=== PATIENT | male | born 1965 | race Caucasian/White ===

== ENCOUNTER → 2016-12-30 | Outpatient (REF) | payer MEDICARE ==
[~2016-12-30] MED LIST: /PANT40TA OR; PAXI20TA OR; TRAM50TA2 PO; TRAZ100T OR; lisinopril/HCTZ PO
[2016-12-30 13:41] LABS: ALBUMIN 3.9 GM/DL (3.2-5.2); ALBUMIN/GLOBULIN RATIO 1.18 (1.00-1.93); ALKALINE PHOSPHATASE 136 U/L (45-117); ALT/SGPT 33 U/L (12-78); ANION GAP 9 MEQ/L (8-16); AST/SGOT 23 U/L (15-37); BILIRUBIN,TOTAL 0.5 MG/DL (0.2-1.0); BLOOD UREA NITROGEN 17 MG/DL (7-18); CALCIUM LEVEL 8.5 MG/DL (8.5-10.1); CARBON DIOXIDE LEVEL 29 MEQ/L (21-32); CHLORIDE LEVEL 104 MEQ/L (98-107); CHOLESTEROL LEVEL 216 MG/DL (<200); CREATININE FOR GFR 1.03 MG/DL (0.70-1.30); FERRITIN 100 NG/ML (26-388); GLOMERULAR FILTRATION RATE > 60.0 (>56); GLUCOSE, FASTING 102 MG/DL (70-105); POTASSIUM SERUM 4.3 MEQ/L (3.5-5.1); SODIUM LEVEL 142 MEQ/L (136-145); TOTAL PROTEIN 7.2 GM/DL (6.4-8.2); TRIGLYCERIDES LEVEL 90 MG/DL (<150)
[2016-12-30 13:58] LABS: MEAN CORPUSCULAR HEMOGLOBIN 31.8 pg (27.0-33.0); MEAN CORPUSCULAR HGB CONC 33.1 g/dl (32.0-36.5); MEAN CORPUSCULAR VOLUME 96.1 fl (80.0-96.0); RED CELL DISTRIBUTION WIDTH 12.9 % (11.5-14.5); WHITE BLOOD COUNT 5.7 K/mm3 (4.0-10.0)
== END ==
LOC: M SFHCADAM 07:51
PROVIDERS: ATTEND Physician Assistant
DX: R74.8 Abnormal levels of other serum enzymes (principal); K21.9 Gastro-esophageal reflux disease without esophagitis; I10 Essential (primary) hypertension; E78.5 Hyperlipidemia, unspecified
CPT/HCPCS: 80053; 80061; 82043; 82728; 85027; 86255; 86705; 86709; 86803; 87340; G0463

== ENCOUNTER → 2017-12-15 | Outpatient (REF) | payer MEDICARE | LOC: M LAB REF 12:21 | DX: J02.9 Acute pharyngitis, unspecified (principal) | CPT/HCPCS: 87081 ==

== ENCOUNTER → 2018-01-25 | Outpatient (REF) | payer MEDICARE ==
[2018-01-25 12:38] LABS: HEMATOCRIT 47.9 % (42.0-52.0); HEMOGLOBIN 16.1 g/dl (14.0-18.0); MEAN CORPUSCULAR HEMOGLOBIN 31.4 pg (27.0-33.0); MEAN CORPUSCULAR HGB CONC 33.6 g/dl (32.0-36.5); MEAN CORPUSCULAR VOLUME 93.6 fl (80.0-96.0); PLATELET COUNT, AUTOMATED 163 10^3/uL (150-450); RED BLOOD COUNT 5.12 10^6/uL (4.30-6.10); RED CELL DISTRIBUTION WIDTH 12.7 % (11.5-14.5); WHITE BLOOD COUNT 7.7 10^3/uL (4.0-10.0)
[2018-01-25 12:48] LABS: ALBUMIN 3.7 GM/DL (3.2-5.2); ALBUMIN/GLOBULIN RATIO 1.03 (1.00-1.93); ALKALINE PHOSPHATASE 139 U/L (45-117); ALT/SGPT 53 U/L (12-78); ANION GAP 5 MEQ/L (8-16); AST/SGOT 43 U/L (7-37); BILIRUBIN,TOTAL 0.9 MG/DL (0.2-1.0); BLOOD UREA NITROGEN 14 MG/DL (7-18); CALCIUM LEVEL 8.6 MG/DL (8.5-10.1); CARBON DIOXIDE LEVEL 31 MEQ/L (21-32); CHLORIDE LEVEL 106 MEQ/L (98-107); CHOLESTEROL LEVEL 206 MG/DL (<200); CREATININE FOR GFR 0.86 MG/DL (0.70-1.30); GLOMERULAR FILTRATION RATE > 60.0 (>56); GLUCOSE, FASTING 89 MG/DL (70-100); HDL CHOLESTEROL 43 MG/DL (>40); LDL CHOLESTEROL 142.8 MG/DL (<100); NON-HDL-C 163 MG/DL; POTASSIUM SERUM 4.3 MEQ/L (3.5-5.1); SODIUM LEVEL 142 MEQ/L (136-145); TOTAL PROTEIN 7.3 GM/DL (6.4-8.2); TRIGLYCERIDES LEVEL 101 MG/DL (<150)
[2018-01-25 13:09] LABS: MALB URINE SIEMENS 19.8 MG/L; MAU/CREAT RATIO 6.6 MCG/MG (0.0-30.0)
== END ==
LOC: M SFHCADAM 07:53
DX: I10 Essential (primary) hypertension (principal); K21.9 Gastro-esophageal reflux disease without esophagitis; E78.4 Other hyperlipidemia
CPT/HCPCS: 80053

== ENCOUNTER → 2019-01-14 | Outpatient (REF) | payer MEDICARE ==
[~2019-01-14] MED LIST changes: -/PANT40TA OR; +PROT1TAB2 OR
[2019-01-14 13:49] LABS: HEMATOCRIT 48.5 % (42.0-52.0); HEMOGLOBIN 16.1 g/dl (13.5-17.5); MEAN CORPUSCULAR HEMOGLOBIN 31.8 pg (27.0-33.0); MEAN CORPUSCULAR HGB CONC 33.2 g/dl (32.0-36.5); MEAN CORPUSCULAR VOLUME 95.8 fl (80.0-96.0); PLATELET COUNT, AUTOMATED 176 10^3/uL (150-450); RED BLOOD COUNT 5.06 10^6/uL (4.30-6.10); WHITE BLOOD COUNT 8.3 10^3/uL (4.0-10.0)
[2019-01-14 13:58] LABS: ALBUMIN 3.8 GM/DL (3.2-5.2); ALT/SGPT 71 U/L (12-78); BILIRUBIN,TOTAL 0.5 MG/DL (0.2-1.0); BLOOD UREA NITROGEN 16 MG/DL (7-18); CALCIUM LEVEL 8.7 MG/DL (8.5-10.1); CARBON DIOXIDE LEVEL 31 MEQ/L (21-32); CHLORIDE LEVEL 105 MEQ/L (98-107); CHOLESTEROL LEVEL 202 MG/DL (<200); CHOLESTEROL RISK RATIO 4.809 (<5); CREATININE FOR GFR 0.96 MG/DL (0.70-1.30); FREE T4 1.01 NG/DL (0.76-1.46); GLOMERULAR FILTRATION RATE > 60.0 (>56); GLUCOSE, FASTING 90 MG/DL (70-100); HDL CHOLESTEROL 42 MG/DL (>40); LDL CHOLESTEROL 134 MG/DL (<100); NON-HDL-C 160 MG/DL; POTASSIUM SERUM 4.2 MEQ/L (3.5-5.1); SODIUM LEVEL 140 MEQ/L (136-145); TOTAL PROTEIN 7.5 GM/DL (6.4-8.2); TRIGLYCERIDES LEVEL 130 MG/DL (<150)
[2019-01-14 14:00] LABS: TOTAL 25(OH) VITAMIN D 9.3 NG/ML (30.0-100.0)
[2019-01-14 14:01] LABS: FOLATE 4.6 NG/ML; VITAMIN B12 LEVEL 450 PG/ML
== END ==
LOC: M SFHCADAM 09:38
PROVIDERS: ATTEND Physician Assistant
DX: Z12.5 Encounter for screening for malignant neoplasm of prostate (principal); I10 Essential (primary) hypertension; E78.49 Other hyperlipidemia; K21.9 Gastro-esophageal reflux disease without esophagitis; G90.511 Complex regional pain syndrome I of right upper limb; E66.01 Morbid (severe) obesity due to excess calories; Z68.41 Body mass index [BMI] 40.0-44.9, adult
CPT/HCPCS: 80053; 80061; 82043; 82306; 82607; 82746; 84439; 84443; 85027; G0103; G0463

== ENCOUNTER → 2019-04-13 | Outpatient (REF) | payer MEDICARE ==
[2019-04-13 13:27] LABS: FREE T4 1.14 NG/DL (0.76-1.46); THYROID STIMULATING HORMONE 3.68 uIU/ML (0.358-3.740)
== END ==
LOC: M SFHCADAM 08:01
PROVIDERS: ATTEND Physician Assistant Medical
DX: R79.89 Other specified abnormal findings of blood chemistry (principal); Z79.899 Other long term (current) drug therapy

== ENCOUNTER → 2020-01-24 | Outpatient (REF) | payer MEDICARE ==
[2020-01-24 12:51] LABS: HEMATOCRIT 47.1 % (42.0-52.0); HEMOGLOBIN 16.1 g/dl (13.5-17.5); MEAN CORPUSCULAR HEMOGLOBIN 33.2 pg (27.0-33.0); MEAN CORPUSCULAR HGB CONC 34.2 g/dl (32.0-36.5); MEAN CORPUSCULAR VOLUME 97.1 fl (80.0-96.0); PLATELET COUNT, AUTOMATED 161 10^3/uL (150-450); RED BLOOD COUNT 4.85 10^6/uL (4.30-6.10); WHITE BLOOD COUNT 6.7 10^3/uL (4.0-10.0)
[2020-01-24 13:29] LABS: ALBUMIN 3.9 GM/DL (3.2-5.2); ALT/SGPT 63 U/L (12-78); BILIRUBIN,TOTAL 0.8 MG/DL (0.2-1.0); BLOOD UREA NITROGEN 17 MG/DL (7-18); CALCIUM LEVEL 9.1 MG/DL (8.5-10.1); CARBON DIOXIDE LEVEL 27 MEQ/L (21-32); CHLORIDE LEVEL 107 MEQ/L (98-107); CHOLESTEROL LEVEL 200 MG/DL (<200); CHOLESTEROL RISK RATIO 5.263 (<5); CREATININE FOR GFR 0.87 MG/DL (0.70-1.30); FREE T4 1.05 NG/DL (0.76-1.46); GLOMERULAR FILTRATION RATE > 60.0 (>56); GLUCOSE, FASTING 90 MG/DL (70-100); HDL CHOLESTEROL 38 MG/DL (>40); LDL CHOLESTEROL 133 MG/DL (<100); NON-HDL-C 162 MG/DL; POTASSIUM SERUM 4.1 MEQ/L (3.5-5.1); SODIUM LEVEL 139 MEQ/L (136-145); TOTAL PROTEIN 7.6 GM/DL (6.4-8.2); TRIGLYCERIDES LEVEL 144 MG/DL (<150)
[2020-01-24 13:42] LABS: MALB URINE SIEMENS 51.9 MG/L; MAU/CREAT RATIO 15.5 MCG/MG (0.0-30.0)
== END ==
LOC: M SFHCADAM 08:28
PROVIDERS: ATTEND Physician Assistant
DX: I10 Essential (primary) hypertension (principal); E78.00 Pure hypercholesterolemia, unspecified; K21.9 Gastro-esophageal reflux disease without esophagitis; Z12.5 Encounter for screening for malignant neoplasm of prostate
CPT/HCPCS: 80053; 80061; 82043; 84439; 84443; 85027; G0103

== ENCOUNTER → 2021-08-16 | Outpatient (CLI) | payer MEDICARE, OTHER ==
[~2021-08-16] MED LIST changes: +AMLO1TAB25 PO; +NAPR-849 PO; +OXYC1TAB23 PO; +PANT40TA29 PO
== END ==
LOC: M LABSMTC 09:16
PROVIDERS: ATTEND Anesthesiology
DX: Z01.812 Encounter for preprocedural laboratory examination (principal); Z20.822 Contact with and (suspected) exposure to COVID-19

== ENCOUNTER 2021-08-19 10:31 | Day surgery (SDC) | payer OTHER ==
[~2021-08-19] VITALS: Ht 182.9 cm; Wt 124.7 kg
[~2021-08-19 10:31] MED LIST changes: +LR 1,000 ML IV ONE; +ceFAZolin SOD 2 GM in IV 1 EA IV ONE
--- OUTSIDE RECORDS SUMMARY | 2021-08-19 10:34 | CCD | Continuity of Care Document ---
Author Author Filemon FLYNN MD Organization Unknown Address [address] , [facility] [address] [place] [address] Phone [phone] Care Team Providers Care Bulb Grader Name Role Phone Mary Carmen Pina P.A.-C. AUTM AUTM Unavailable Problems Active Problems Provider Date Essential hypertension Bar Lloyd, DO Onset: 0 Social History Type Date Description Comments Sex Unknown ETOH Use Occasionally consumes alcohol Tobacco Use Start: Unknown Denies Smoking Recreational Drug Use Denies Drug Use Allergies and adverse reactions Active Allergies Criticality Reaction | Severity Comments Date Codeine Unable to assess criticality 01/05/2020 Tetanus Unable to assess criticality 01/05/2020 Medications Active Medications SIG Qnty Indications Ordering Provide r Date Pantoprazole Sodium 40mg Tablets D R daily -- one tablet in morning 1/2 hour before breakfast Unknown Oxycodone-Acetaminophen 5-325mg Tablets Aníbal Aguilar MD Amlodipine Besylate 10mg Tablets William Pina M.D. Immunizations Description No Information Available Vital Signs Date Vital Result Comment 01/05/2020 1:05pm BP Systolic 161 mmHg BP Diastolic 104 mmHg Height 72 inches 6'0" Weight 282.12 lb BMI (Body Mass Index) 38.3 kg/m2 [place] Body Weight 178 lb Weight 127.972 kg BSA (Body Surface Area) 2.47 m2 Results Description No Information Available Procedures Date Code Description Status 08/16/2021 28325 Office/Outpatient Established Mo d MDM 30-39 Min Completed Medical Devices Description No Information Available Encounters Type Date Location Provider Dx Diagnosis Office Visit 08/16/2021 8:00a [facility] Ty Flynn MD S52.502D Unsp fx the low end left rad, subs for c los fx w routn heal S82.102D Unsp fx upper end of l tibia , subs for clos fx w routn heal Assessments Date Code Description Provider 08/16/2021 S52.502D Unspecified fracture of the lower end of left radius, subsequent encounter for closed fracture with routine healing Ty Flynn MD 08/16/2021 S82.102D Unspecified fracture of upper end of left tibia, subsequent encounter for closed fracture with routine healing Ty Flynn MD Plan of Treatment Future Appointment(s):* 09/02/2021 9:30 am - Ty Flynn MD at [facility] 08/16/2021 - Ty Flynn MD* S52.502D Unspecified fracture of the lower end of left radius, subsequent encounter for closed fracture with routine healing * S82.102D Unspecified fracture of upper end of left tibia, subsequent encounter for closed fracture with routine healing Functional Status Description No Information Available Mental Status Description No Information Available Referrals Description No Information Available
--- OUTSIDE RECORDS SUMMARY | 2021-08-19 10:34 | CCD ---
Author Author [facility] Organization [facility] Address Unknown Phone Unavailable Care Team Providers Care Cafe Server Name Role Phone Anisa Land MD Unavailable Unavailable Anisa Land MD Unavailable Unavailable Anisa Land MD Unavailable Unavailable Anisa Land MD Unavailable Unavailable Anisa Land MD Unavailable Unavailable Anisa Land MD Unavailable Unavailable Anisa Land MD Unavailable Unavailable Anisa Land MD Unavailable Unavailable Anisa Land MD Unavailable Unavailable Anisa Ladn MD Unavailable Unavailable Anisa Land MD Unavailable Unavailable Anisa Land MD Unavailable Unavailable Anisa Land MD Unavailable Unavailable Anisa Land MD Unavailable Unavailable Anisa Land MD Unavailable Unavailable Anisa Land MD Unavailable Unavailable Anisa Land MD Unavailable Unavailable Anisa Land MD Unavailable Unavailable Anisa Land MD Unavailable Unavailable Anisa Land MD Unavailable Unavailable Anisa Land MD Unavailable Unavailable Anisa Land MD Unavailable Unavailable Anisa Land MD Unavailable Unavailable Anisa Land MD Unavailable Unavailable Anisa Land MD Unavailable Unavailable Anisa Land MD Unavailable Unavailable Anisa Land MD Unavailable Unavailable Anisa Land MD Unavailable Unavailable Anisa Land MD Unavailable Unavailable Anisa Land MD Unavailable Unavailable Re-disclosure Warning The records that you are about to access may contain information from federally-assisted alcohol or drug abuse programs. If such information is present, then the following federally mandated warning applies: This information has been disclosed to you from records protected by federal confidentiality rules (42 CFR part 2). The federal rules prohibit you from making any further disclosure of this information unless further disclosure is expressly permitted by the written consent of the person to whom it pertains or as otherwise permitted by 42 CFR part 2. A general authorization for the release of medical or other information is NOT sufficient for this purpose. The Federal rules restrict any use of the information to criminally investigate or prosecute any alcohol or drug abuse patient.The records that you are about to access may contain highly sensitive health information, the redisclosure of which is protected by Article 27-F of the [facility] Public Health law. If you continue you may have access to information: Regarding HIV / AIDS; Provided by facilities licensed or operated by the [facility] Office of Mental Health; or Provided by the [facility] Office for People With Developmental Disabilities. If such information is present, then the following [facility] mandated warning applies: This information has been disclosed to you from confidential records which are protected by state law. State law prohibits you from making any further disclosure of this information without the specific written consent of the person to whom it pertains, or as otherwise permitted by law. Any unauthorized further disclosure in violation of state law may result in a fine or fdc sentence or both. A general authorization for the release of medical or other information is NOT sufficient authorization for further disc losure. Family History Family Member Name Family Member Gender Family Member Status Date o f Status Description Data Source(s) Unknown Unknown Problem [facility] Encounters Encounter Providers Location Date Indications Data Source(s ) Outpatient Attender: Ty Torres/Shannon/Patric/Annette indl 08/16/2021 08:00:00 AM EDT [facility] ([facility] Outpatient [address] [address] 01/24/2021 12:00:00 AM EDT eCW1 ([facility]) Immunizations Vaccine Date Status Description Data Source(s) COVID-19 VACCINE Pfizer 01/30/2021 12:00:00 AM EDT completed [facility] Vaccine Series Complete: YESThis Data wa s Submitted to [facility] Via [facility]. COVID-19 dose #1 given elsewhere Unspecified 01/09/2021 11:0 4:00 AM EST completed eCW1 ([facility]) COVID-19 VACCINE Pfizer 01/09/2021 12:00:00 AM EST completed [facility] Vaccine Series Complete: NOThis Data was Submitted to [facility] Via [employer]. Medications Medication Brand Name Start Date Product Form Dose Route Admi nistrative Instructions Pharmacy Instructions Status Indications Reaction Description Data Source(s) 4 mg 08/15/2021 12:00:00 AM EDT tablet 5 TAKE ONE TABLET BY MOUTH EVERY 6 TO 8 HOURS NEEDED FOR NAUSEA AND VOMITING TAKE ONE TABLET BY MOUTH EVERY 6 TO 8 HOURS NEEDED FOR NAUSEA AND VOMITING SOLD: 08/15/2021 [facility] 5-325 mg 08/15/2021 12:00:00 AM EDT tablet 12 TAKE ONE TABLET BY MOUTH EVERY 6 HOURS NEEDED FOR PAIN MAXIMUM DAILY DOSE = 4 TAKE ONE TABLET BY MOUTH EVERY 6 HOURS NEEDED FOR PAIN MAXIMUM DAILY DOSE = 4 SOLD: 08/15/2021 [facility] Insurance Providers Payer name Policy type / Coverage type Policy ID Covered democrat ID Covered democrat's relationship to reagan Policy Reagan Plan Information [facility] 301/[id number] [facility] [id number] [facility] SELF INSURED [id number] SP [id number] MEDICARE [id number] SP [id number] MEDICARE COMPLETE [id number] SP [id number] ANSI-Medicare Part B [id number] ANSI-Commercial [id number] ANSI-Medicare Part B [id number] ANSI-Commercial [id number] ANSI-Medicare Part B [id number] ANSI-Commercial [id number] [facility]/Medicare Sol Commercial [id number] Self [id number] SELF PAY UNAVAILABLE UNAVAILA BLE BLUE CROSS BLUE SHIELD-CLINIC [id number] MEDICARE [id number] SP [id number] STATE INSURANCE FUND [id number] SP [id number] [facility] 301/801 [id number] [id number] [facility] [id number] [facility] [id number] Problems, Conditions, and Diagnoses No Information Surgeries/Procedures Procedure Description Date Indications Data Source(s) OFFICE OUTPATIENT VISIT 25 MINUTES 08/16/2021 12:00:00 AM EDT [facility] ([facility] ) Results No Information Social History Code Duration Value Status Description Data Source(s ) Smoking 01/24/2021 12:00:00 AM EDT UNK completed eCW1 ([facility]) Vital Signs ID Date Data Source UNK Name Value Range Interpretation Code Description Data Source(s) Body weight 278.2 [lb_av] 278.2 [lb_av] eCW1 ([facility]) Body height [in_i] eCW1 ([facility]) Body mass index (BMI) [Ratio] 38.80 kg/m2 38.80 kg/m2 eCW1 ([facility]) Heart rate 104 /min 104 /min eCW1 ([facility]) Respiratory rate 18 /min 18 /min eCW1 ([facility]) Body temperature 97.1 [degF] 97.1 [degF] eCW1 ( [facility]) Systolic blood pressure 120 mm[Hg] 120 mm[Hg] e CW1 ([facility]) Diastolic blood pressure 82 mm[Hg] 82 mm[Hg] eCW1 ([facility])
[2021-08-19] MEDS ORDERED: ONDA4TAB6 PO (11:29)
[2021-08-19] MEDS ORDERED: BUPIVACAINE/EPIN 0.25% 30 ML VIAL As Ordered ONE (11:46)
[2021-08-19] MEDS ORDERED: propofoL 200 MG/20 ML VIAL As Ordered ONE (11:52)
[2021-08-19] MEDS ORDERED: ONDANSETRON 4MG/2ML VIAL As Ordered ONE (11:53)
[2021-08-19] MEDS ORDERED: ROCURONIUM BROMIDE 50 MG/5 ML VIAL As Ordered ONE (11:53)
[2021-08-19] MEDS ORDERED: LIDOCAINE 2% 100MG/5ML SDV (FOR ANES.) As Ordered ONE (11:53)
[2021-08-19] MEDS ORDERED: dexameTHASONE 4 MG/ML 1ML VIAL (J1100 PER 1MG) As Ordered ONE (11:54)
[2021-08-19] MEDS ORDERED: fentaNYL 100 MCG/2 ML INJECTION (J3010) As Ordered ONE (11:57)
[2021-08-19] MEDS ORDERED: MIDAZOLAM INJ 2MG/2ML VIAL (J2250 PER 1MG) As Ordered ONE (11:57)
[2021-08-19] MEDS ORDERED: HYDROmorphone HCL 2 MG/ML 1ML VIAL As Ordered ONE (12:26)
[2021-08-19] MEDS ORDERED: ACETAMINOPHEN 1000MG 100ML IV BTL (OFIRMEV) (J0131 PER 10MG) As Ordered ONE (12:28)
[2021-08-19] MEDS ORDERED: KETOROLAC 60MG 2ML VIAL As Ordered ONE (14:07)
--- NOTE | 2021-08-19 14:29 | ROOPDOC ---
[facility] Report Of Operation Report of Operation DATE OF PROCEDURE: 08/19/21 PREPROCEDURE DIAGNOSES: Left distal radius fracture and left hemarthrosis knee. POSTPROCEDURE DIAGNOSES: Same. PROCEDURE PERFORMED: Left distal radius open reduction internal fixation and left knee aspiration. SURGEON: Dr. Meagan Flynn MD SENIOR ANALYST PROGRAMMER: MD Yaima ANESTHESIA: General anesthesia Dr. Carcamo. ESTIMATED BLOOD LOSS: Approximately 30 mL from the distal radius ORIF (30 cc additional sent from knee aspirate). COMPLICATIONS: None. REMARKS: None. FINDINGS: Left knee hemarthrosis and left distal radius fracture SPECIMENS REMOVED: 30 cc of blood from left knee sent for Gram stain and culture and sensitivities PROCEDURE NOTE: This 55-year-old man stained a displaced angulated distal radius fracture. He also preoperatively was asking if I could aspirate his left knee for pain control. Discussed as well as altered the consent at the time in preoperative holding for left knee aspiration pros and cons risks and benefits discussed which include but not limited to infection pain stiffness bleeding damage to surrounding structures neurovascular injury and other complications. He wished to go ahead. I marked the left upper extremity as well as left knee. He had no further questions.. DESCRIPTION OF PROCEDURE: Patient was brought to the operating room theater. Administered a general anesthetic. Placed supine on the operating room table. Hand table to patient's left side. 18 inch tourniquet applied appropriately padded to the left upper extremity. Left knee prepped with chlorhexidine prep solution allowing over 3 minutes drying time. Preoperative timeout performed to confirm the site patient and surgery and procedure which was starting out with a left knee aspiration. I used 30 cc syringe with an 18-gauge needle spinal needle to aspirate 30 cc per high superolateral approach. Pressure was applied and sterile gauze with adherent bandage placed afterwards. Sample sent for Gram stain culture and sensitivities. Following this, the left upper extremity prepped and draped in the usual sterile fashion with chlorhexidine-based prep solution allowing over 3 minutes drying time. Bed turned 90 degrees. All bony prominences appropriately padded. SCDs on the legs. Preoperative timeout performed to confirm the site patient and surgery again which was the left wr ist. I began by using an Esmarch to exsanguinate the limb elevate the limb and inflated the tourniquet to 250 mmHg. Made a standard volar incision over the FCR tendon carried this dissection down through skin and subcutaneous tissue achieve meticulous hemostasis. I incised the FCR tendon sheath as well as a subsheath. I retracted the FPL ulnarly. I ligated any crossing vessels of the radial artery. I elevated pronator quadratus from radial to ulnar side and achieved dissection down onto the volar surface of the distal radius. Identified the fracture site. I cleared away any interposed hematoma and fracture periosteum. I achieved a preliminary reduction decompressing the dorsal side with a freer elevator through the fracture. I then placed a Synthes precontoured volar locking plate 3 hole proximal on the volar surface of the bone. I then used combination of small K wires, followed by a 2.7 mm fully threaded cortical screw in the oblong hole to fix this at an appropriate position on both AP and lateral radiographs. Fracture is well aligned. Some dorsal comminution. I then placed 4 fully threaded 2.4 mm locking screws in the distal aspect of the plate followed by 2 similarly sized screws in the proximal end of the plate. Ensured no dorsal penetration, screws at the joint were from 18-20mm long. Screws proximally 14mm locking and 16mm cortical. This achieved good solid construct with anatomic reduction of the fracture site. Final radiographs were taken AP lateral as well as 30 degree true joint lateral view. Fracture appeared well reduced and stable and solid. Tourniquet let down hemostasis achieved. Wound thoroughly irrigated with normal saline. Subcutaneous tissue closed with 2-0 Vicryl sutures and skin with running 3-0 Monocryl sutures. 8 cc of quarter percent Marcaine with epinephrine was instilled in and around the incision. Skin cleaned with wet and dry dressing f ollowed application of Steri-Strips Adaptic 4 x 8 gauze and sterile cast padding with a volar plaster of Lora splint with the wrist in neutral wrapped over top with 6 inch Kunal bandage. Splint was allowed to fully set patient's upper extremity placed into a sling. Patient woken up from general anesthetic transferred off the operating room table and taken to postanesthetic care unit in stable condition. All sponge needle instrument counts were correct no complications. Plan to the patient discharged home when they are comfortable. Follow-up in the office in 2 weeks time. Leave the splint on until follow-up in clinic. Prescription [facility]. Postoperative wound instructions were given. It was recommended to keep the wound clean and dry. Dressing changes as needed. It was reinforced with the patient that they should call us or be seen immediately for redness, drainage, or fever. Risk factors for harms from taking opioid medications discussed and assessed including but not limited to personal or family history of substance use disorder, anxiety or depression, , age 65 or older, COPD or other underlying respiratory conditions, and renal or hepatic insufficiency. Discussed with patient concerns and determined any harms they may experience or be currently experiencing such as nausea or constipation, feeling sedated or confused, breathing interruptions during sleep, or taking or craving more opioids than prescribed or difficulty controlling use (addiction). Discussed early warning signs of overdose including confusion, sedation, slurred speech, abnormal gait. MEAGAN FLYNN MD Aug 19, 2021 14:29
[2021-08-19 15:50] VITALS: BP 131/75
--- NOTE | 2021-08-19 17:16 | REP ---
INDICATION: LEFT DISTAL RADIUS. COMPARISON: None. TECHNIQUE: Multiple C-arm views left wrist. FINDINGS: There is metallic plate and multiple screws in the distal radius. Fracture of the distal radius is well aligned. There is also fracture of the ulnar styloid. IMPRESSION: 23 seconds fluoroscopy time utilized. <Electronically signed by Bar Stewart > 08/19/21 [id number]
== END 2021-08-19 16:00 | disposition home or self-care (01) ==
LOC: M SDC 10:31
PROVIDERS: ATTEND Orthopaedic Surgery Sports Medicine
DX: S52.502A Unspecified fracture of the lower end of left radius, initial encounter for closed fracture (principal); M25.062 Hemarthrosis, left knee; X58.XXXA Exposure to other specified factors, initial encounter; Y92.89 Other specified places as the place of occurrence of the external cause; I10 Essential (primary) hypertension; R12 Heartburn; G90.511 Complex regional pain syndrome I of right upper limb; Z88.7 Allergy status to serum and vaccine; Z88.5 Allergy status to narcotic agent; Z79.899 Other long term (current) drug therapy
CPT/HCPCS: 20610; 25607; 76000; 87070; 87075; 87205; C1713; J0131; J0690; J1100; J1170; J1885; J2250; J2405; J3010

== ENCOUNTER → 2021-09-02 | Outpatient (CLI) | payer OTHER ==
[~2021-09-02] MED LIST changes: -LR 1,000 ML IV ONE; +ONDA4TAB6 PO; -ceFAZolin SOD 2 GM in IV 1 EA IV ONE
--- NOTE | 2021-09-02 11:29 | REP ---
INDICATION: LT WRIST ORTHOPEDIC AFTERCARE LT KNEE FX. COMPARISON: None. TECHNIQUE: AP and lateral views. FINDINGS: The patient is status post distal radial ORIF due to a comminuted fracture. Two limited views show the alignment to be near anatomical. A distal ulnar fracture cannot be ruled out. I have no priors for comparison. Additionally, there appears to be an abnormal lucency involving the trapezoid and possibly the trapezium as well. Additional fractures cannot be ruled out. IMPRESSION: Status post ORIF but with additional fracture seen on this limited two view exam as described above. Consider is CT. <Electronically signed by Jean-Paul Morataya > 09/02/21 1129
--- NOTE | 2021-09-02 11:30 | REP ---
INDICATION: LT WRIST ORTHOPEDIC AFTERCARE LT KNEE FX. COMPARISON: None. TECHNIQUE: Two views left knee. FINDINGS: There is nondisplaced fracture of the central tibial plateau. the joint spaces appear well preserved. There is probably a small suprapatellar effusion. IMPRESSION: Nondisplaced fracture central tibial plateau. <Electronically signed by Bar Stewart > 09/02/21 112
== END ==
LOC: M SOG 08:30
PROVIDERS: ATTEND Orthopaedic Surgery Sports Medicine
DX: Z47.89 Encounter for other orthopedic aftercare (principal); S82.135D Nondisplaced fracture of medial condyle of left tibia, subsequent encounter for closed fracture with routine healing; W18.30XD Fall on same level, unspecified, subsequent encounter; Y92.009 Unspecified place in unspecified non-institutional (private) residence as the place of occurrence of the external cause

== ENCOUNTER → 2021-09-13 | Outpatient (CLI) | payer OTHER ==
--- NOTE | 2021-09-13 08:44 | REP ---
INDICATION: CARPAL FX. COMPARISON: Two-view x-ray 09/02/2021, C-arm 08/19/2021. TECHNIQUE: Axial soft tissue and bone window images with coronal and sagittal reconstructions. Reconstruction also with orthopedic metal artifact reduction algorithm (O-MAR) in axial plane provided. FINDINGS: Fiberglass cast material is noted. Along the volar or anterior aspect of the distal radial diaphysis to metaphysis is a plate and screw fixation 4 mildly comminuted distal radial fracture. Alignment is maintained from the C-arm image from 08/19/2021. The distal ulna shows an ulnar styloid fracture with displacement of that styloid can a volar direction. I believe this displacement has occurred the since the reduction as it is not seen on the reduction or radiograph done nearly 2 weeks later. There are no other ulnar fractures. Carpal bones show a few tiny cysts subchondral cysts scattered in several of them. Adjacent to the greater multangular bone is a small ossific density its volar aspect which appears to be an old avulsion or accessory ossicle. There is intra-articular fracture of the radial aspect of the head of the 2nd metatarsal as it articulates with the lesser multangular bone. There is no fracture of the lesser multangular bone. Capitate, lunate, hamate and triquetrum show no fracture. The other metacarpals are intact. IMPRESSION: 1. Status post ORIF of a distal radial comminuted fracture with plate and screw fixation and hardware intact and alignment maintained. 2. Ulnar styloid fracture as seen previously but the fracture fragment is now displaced in a volar direction completely anterior to the distal cortex of the ulna. 3. There are scattered small lucencies within carpal bones suggesting small cysts with minor degenerative change. 4. There is an intra-articular fracture in the radial half of the 2nd metacarpal at its articulation with the lesser multangular. No other fracture or acute finding. <Electronically signed by Jake Blue > 09/13/21 [id number]
== END ==
LOC: M RAD 07:03
PROVIDERS: ATTEND Orthopaedic Surgery Sports Medicine
DX: Z47.89 Encounter for other orthopedic aftercare (principal)

== ENCOUNTER → 2021-10-01 | Outpatient (CLI) | payer OTHER ==
[~2021-10-01] MED LIST changes: +PANT20TA6 PO; +PERC5TAB12 PO; +ZOFR4TAB16 PO; +atenolol PO
== END ==
LOC: M SOG 13:17
PROVIDERS: ATTEND Orthopaedic Surgery Sports Medicine
DX: S52.502D Unspecified fracture of the lower end of left radius, subsequent encounter for closed fracture with routine healing (principal); S82.135D Nondisplaced fracture of medial condyle of left tibia, subsequent encounter for closed fracture with routine healing; W18.30XD Fall on same level, unspecified, subsequent encounter; Y92.009 Unspecified place in unspecified non-institutional (private) residence as the place of occurrence of the external cause

== ENCOUNTER → 2021-11-28 | Outpatient (CLI) | payer OTHER | LOC: M SOG 08:27 | PROVIDERS: ATTEND Orthopaedic Surgery Sports Medicine | DX: S52.502D Unspecified fracture of the lower end of left radius, subsequent encounter for closed fracture with routine healing (principal); S82.135D Nondisplaced fracture of medial condyle of left tibia, subsequent encounter for closed fracture with routine healing; X58.XXXD Exposure to other specified factors, subsequent encounter ==

== ENCOUNTER → 2021-11-28 | Outpatient (REF) | payer MEDICARE ==
[2021-11-28 17:36] LABS: HEMATOCRIT 48.5 % (42.0-52.0); HEMOGLOBIN 16.1 g/dl (13.5-17.5); MEAN CORPUSCULAR HEMOGLOBIN 31.8 pg (27.0-33.0); MEAN CORPUSCULAR HGB CONC 33.2 g/dl (32.0-36.5); MEAN CORPUSCULAR VOLUME 95.7 fl (80.0-96.0); PLATELET COUNT, AUTOMATED 225 10^3/uL (150-450); RED BLOOD COUNT 5.07 10^6/uL (4.30-6.10); WHITE BLOOD COUNT 8.7 10^3/uL (4.0-10.0)
[2021-11-28 18:03] LABS: ALBUMIN 4.1 GM/DL (3.2-5.2); ALT/SGPT 34 U/L (12-78); BILIRUBIN,TOTAL 0.7 MG/DL (0.2-1.0); BLOOD UREA NITROGEN 17 MG/DL (7-18); CALCIUM LEVEL 9.1 MG/DL (8.5-10.1); CARBON DIOXIDE LEVEL 27 MEQ/L (21-32); CHLORIDE LEVEL 106 MEQ/L (98-107); CHOLESTEROL LEVEL 213 MG/DL (<200); CREATININE FOR GFR 1.05 MG/DL (0.70-1.30); FREE T4 1.17 NG/DL (0.76-1.46); GLOMERULAR FILTRATION RATE > 60.0 (>56); GLUCOSE, FASTING 101 MG/DL (70-100); HDL CHOLESTEROL 44 MG/DL (>40); LDL CHOLESTEROL 142 MG/DL (<100); NON-HDL-C 169 MG/DL; POTASSIUM SERUM 4.1 MEQ/L (3.5-5.1); SODIUM LEVEL 143 MEQ/L (136-145); TOTAL PROTEIN 7.8 GM/DL (6.4-8.2); TRIGLYCERIDES LEVEL 135 MG/DL (<150)
[2021-11-29 10:58] LABS: TOTAL 25(OH) VITAMIN D 15.6 NG/ML (30.0-100.0)
== END ==
LOC: M SFHCADAM 12:54
PROVIDERS: ATTEND Physician Assistant
DX: I10 Essential (primary) hypertension (principal); Z12.5 Encounter for screening for malignant neoplasm of prostate; E55.9 Vitamin D deficiency, unspecified; R79.89 Other specified abnormal findings of blood chemistry; E78.00 Pure hypercholesterolemia, unspecified
CPT/HCPCS: 80053; 80061; 82306; 84439; 84443; 85027; G0103

== ENCOUNTER → 2022-01-30 | Outpatient (CLI) | payer MEDICARE | LOC: M SOG 08:07 | PROVIDERS: ATTEND Orthopaedic Surgery Sports Medicine | DX: S52.502D Unspecified fracture of the lower end of left radius, subsequent encounter for closed fracture with routine healing (principal); S82.135D Nondisplaced fracture of medial condyle of left tibia, subsequent encounter for closed fracture with routine healing ==

== ENCOUNTER → 2022-10-09 | Outpatient (CLI) | payer MEDICARE ==
[2022-10-09 14:34] LABS: APPEARANCE, BODY FLUID TURBID
[2022-10-09 15:22] LABS: CRYSTALS, BODY FLUID CHOLESTEROL (NONE SEEN); SOURCE, BODY FLUID CRYSTALS RT KNEE
== END ==
LOC: M SOG 07:56
PROVIDERS: ATTEND Orthopaedic Surgery Hand Surgery
DX: M67.461 Ganglion, right knee (principal)

== ENCOUNTER → 2022-11-06 | Outpatient (REF) | payer MEDICARE ==
[2022-11-06 16:17] LABS: ALBUMIN 3.8 G/DL (3.2-5.2); ALKALINE PHOSPHATASE 145 U/L (46-116); ALT/SGPT 34 U/L (7.0-40); AST/SGOT 31 U/L (<34); BILIRUBIN,TOTAL 0.7 MG/DL (0.3-1.2); BLOOD UREA NITROGEN 15 MG/DL (9-23); CALCIUM LEVEL 8.9 MG/DL (8.5-10.1); CARBON DIOXIDE LEVEL 30 MMOL/L (20-31); CHLORIDE LEVEL 102 MMOL/L (98-107); CHOLESTEROL LEVEL 187 MG/DL (<200); CHOLESTEROL RISK RATIO 4.51 (<5); CREATININE FOR GFR 0.85 MG/DL (0.70-1.30); GLOMERULAR FILTRATION RATE > 60.0 (>56); GLUCOSE, FASTING 79 MG/DL (60-100); HDL CHOLESTEROL 41.4 MG/DL (>40); HEMATOCRIT 48.5 % (42.0-52.0); LDL CHOLESTEROL 112.4 MG/DL (<100); MEAN CORPUSCULAR HEMOGLOBIN 31.7 pg (27.0-33.0); NON-HDL-C 146 MG/DL; PLATELET COUNT, AUTOMATED 202 10^3/uL (150-450); POTASSIUM SERUM 4.6 MMOL/L (3.5-5.1); RED BLOOD COUNT 5.05 10^6/uL (4.30-6.10); SODIUM LEVEL 140 MMOL/L (136-145); TOTAL PROTEIN 7.3 G/DL (5.7-8.2); TRIGLYCERIDES LEVEL 166 MG/DL (<150); WHITE BLOOD COUNT 8.2 10^3/uL (4.0-10.0)
[2022-11-06 16:22] LABS: FREE T4 1.11 NG/DL (0.89-1.76); THYROID STIMULATING HORMONE 3.863 uIU/ML (0.55-4.78); TOTAL 25(OH) VITAMIN D 18.4 NG/ML (20.0-100.0)
== END ==
LOC: M SFHCADAM 11:09
PROVIDERS: ATTEND Physician Assistant
DX: I10 Essential (primary) hypertension (principal); E55.9 Vitamin D deficiency, unspecified; E78.00 Pure hypercholesterolemia, unspecified; Z12.5 Encounter for screening for malignant neoplasm of prostate
CPT/HCPCS: 80053; 80061; 82306; 84439; 84443; 85027; G0103

== ENCOUNTER → 2023-02-18 | Outpatient (REF) | payer MEDICARE ==
[2023-02-18 11:28] LABS: APPEARANCE, BODY FLUID CLOTTED
[2023-02-18 11:29] LABS: CRYSTALS, BODY FLUID NONE SEEN (NONE SEEN); SOURCE, BODY FLUID CRYSTALS RT KNEE
== END ==
LOC: M LAB REF 10:20
PROVIDERS: ATTEND Orthopaedic Surgery
DX: M67.461 Ganglion, right knee (principal); L72.3 Sebaceous cyst

== ENCOUNTER → 2023-03-11 | Outpatient (CLI) | payer MEDICARE | LOC: M PLAIMG 06:57 | PROVIDERS: ATTEND Orthopaedic Surgery | DX: L72.3 Sebaceous cyst (principal); S83.231A Complex tear of medial meniscus, current injury, right knee, initial encounter; S83.271A Complex tear of lateral meniscus, current injury, right knee, initial encounter; M94.261 Chondromalacia, right knee; M25.461 Effusion, right knee ==

== ENCOUNTER → 2023-04-14 | Outpatient (REF) | payer MEDICARE | LOC: M LAB REF 08:38 | PROVIDERS: ATTEND Surgery | DX: M25.861 Other specified joint disorders, right knee (principal) ==

== ENCOUNTER → 2024-06-01 | Outpatient (REF) | payer MEDICARE ==
[~2024-06-01] MED LIST changes: +ONDA-282 PO; -ONDA4TAB6 PO
[2024-06-01 13:14] LABS: ALBUMIN 3.5 G/DL (3.2-5.2); ALKALINE PHOSPHATASE 140 U/L (46-116); ALT/SGPT 37 U/L (7.0-40); AST/SGOT 41 U/L (<34); BILIRUBIN,TOTAL 0.6 MG/DL (0.3-1.2); BLOOD UREA NITROGEN 11 MG/DL (9-23); CALCIUM LEVEL 8.8 MG/DL (8.5-10.1); CARBON DIOXIDE LEVEL 26 MMOL/L (20-31); CHLORIDE LEVEL 106 MMOL/L (98-107); CREATININE FOR GFR 0.85 MG/DL (0.70-1.30); GLOMERULAR FILTRATION RATE > 60.0 (>56); GLUCOSE, FASTING 109 MG/DL (60-100); POTASSIUM SERUM 4.3 MMOL/L (3.5-5.1); PSA SCREENING 0.47 NG/ML (< 4.00); SODIUM LEVEL 140 MMOL/L (136-145); TOTAL PROTEIN 7.2 G/DL (5.7-8.2)
[2024-06-01 13:17] LABS: FOLATE 7.2 NG/ML (>5.4)
[2024-06-01 13:18] LABS: FREE T4 1.03 NG/DL (0.89-1.76); THYROID STIMULATING HORMONE 3.359 uIU/ML (0.55-4.78); VITAMIN B12 LEVEL 352 PG/ML (211-911)
== END ==
LOC: M SFHCADAM 10:29
PROVIDERS: ATTEND Physician Assistant
DX: Z00.00 Encounter for general adult medical examination without abnormal findings (principal); I10 Essential (primary) hypertension; K21.9 Gastro-esophageal reflux disease without esophagitis; G90.511 Complex regional pain syndrome I of right upper limb; E78.00 Pure hypercholesterolemia, unspecified; F10.10 Alcohol abuse, uncomplicated; Z28.21 Immunization not carried out because of patient refusal; R79.89 Other specified abnormal findings of blood chemistry; Z12.5 Encounter for screening for malignant neoplasm of prostate
CPT/HCPCS: 80053; 82607; 82746; 84439; 84443; G0103

== ENCOUNTER → 2025-02-27 | Outpatient (REF) | payer MEDICARE ==
[2025-02-27 13:46] LABS: ALBUMIN 3.5 G/DL (3.2-5.2); ALKALINE PHOSPHATASE 136 U/L (40-129); ALT/SGPT 39 U/L (7.0-40); AST/SGOT 43 U/L (<34); BILIRUBIN,TOTAL 0.8 MG/DL (0.3-1.2); BLOOD UREA NITROGEN 11 MG/DL (9-23); CALCIUM LEVEL 8.9 MG/DL (8.3-10.6); CARBON DIOXIDE LEVEL 30 MMOL/L (20-31); CHLORIDE LEVEL 105 MMOL/L (98-107); CHOLESTEROL LEVEL 182 MG/DL (<200); CHOLESTEROL RISK RATIO 3.68 (<5); CREATININE FOR GFR 0.86 MG/DL (0.70-1.30); GLOMERULAR FILTRATION RATE > 90.0 (>49); GLUCOSE, FASTING 95 MG/DL (74-106); HDL CHOLESTEROL 49.4 MG/DL (>40); LDL CHOLESTEROL 119.4 MG/DL (<100); NON-HDL-C 132.6 MG/DL; POTASSIUM SERUM 4.3 MMOL/L (3.5-5.1); SODIUM LEVEL 141 MMOL/L (136-145); TOTAL PROTEIN 7.2 G/DL (5.7-8.2); TRIGLYCERIDES LEVEL 66 MG/DL (<150)
== END ==
LOC: M SFHCADAM 08:26
PROVIDERS: ATTEND Physician Assistant
DX: I10 Essential (primary) hypertension (principal); K21.9 Gastro-esophageal reflux disease without esophagitis; E78.00 Pure hypercholesterolemia, unspecified; R74.8 Abnormal levels of other serum enzymes

== ENCOUNTER → 2025-09-04 | Outpatient (REF) | payer MEDICARE ==
[2025-09-04 13:55] LABS: PLATELET COUNT, AUTOMATED 145 10^3/uL (150-450)
[2025-09-04 14:14] LABS: ESTIMATED AVERAGE GLUCOSE 97.0 MG/DL (60-110)
[2025-09-04 14:22] LABS: ALT/SGPT 47 U/L (7.0-40); AST/SGOT 54 U/L (<34); CALCIUM LEVEL 8.7 MG/DL (8.3-10.6); CARBON DIOXIDE LEVEL 30 MMOL/L (20-31); CHLORIDE LEVEL 103 MMOL/L (98-107); CREATININE FOR GFR 0.90 MG/DL (0.70-1.30); GLOMERULAR FILTRATION RATE > 90.0 (>49); POTASSIUM SERUM 4.6 MMOL/L (3.5-5.1); SODIUM LEVEL 143 MMOL/L (136-145)
== END ==
LOC: M SFHCADAM 07:30
PROVIDERS: ATTEND Physician Assistant
DX: Z00.00 Encounter for general adult medical examination without abnormal findings (principal); I10 Essential (primary) hypertension; E78.00 Pure hypercholesterolemia, unspecified; E66.01 Morbid (severe) obesity due to excess calories; Z68.39 Body mass index [BMI] 39.0-39.9, adult; E66.812 Obesity, class 2; G90.511 Complex regional pain syndrome I of right upper limb; K21.9 Gastro-esophageal reflux disease without esophagitis; Z79.899 Other long term (current) drug therapy

== ENCOUNTER → 2025-09-14 | Outpatient (CLI) | payer MEDICARE | LOC: M RAD 08:08 | PROVIDERS: ATTEND Physician Assistant | DX: R74.8 Abnormal levels of other serum enzymes (principal) ==